=== PATIENT | male | born 2000 | race Caucasian/White ===

== ENCOUNTER 2023-03-27 15:12 | Emergency (ER) | payer OTHER ==
[2023-03-27] MEDS ORDERED: Ketorolac Tromethamine 30 MG/ML VIAL ONE (16:37)
== END 2023-03-27 16:55 | disposition home or self-care (01) ==
LOC: CSHERS 15:12
DX: G62.9 Polyneuropathy, unspecified (principal); R51.9 Headache, unspecified
CPT/HCPCS: 70450; 71045; 93005; 96372; J1885

== ENCOUNTER 2023-09-21 21:45 | Emergency (ER) | payer OTHER | END 2023-09-21 22:42 | disposition home or self-care (01) | LOC: CSHERS 21:45 | DX: S61.210A Laceration without foreign body of right index finger without damage to nail, initial encounter (principal); W26.8XXA Contact with other sharp object(s), not elsewhere classified, initial encounter | CPT/HCPCS: 12001; 99282 ==